=== PATIENT | female | born 1995 | race Caucasian/White ===

== ENCOUNTER 2017-04-06 06:01 | Emergency (ER) | payer OTHER ==
[2017-04-06] MEDS ORDERED: IBUPROFEN 400 MG TABLET (FP) PO ONE ×2 (06:19→06:24)
[2017-04-06] MEDS ORDERED: MAG HYDROX/AL HYDROX/SIMETH 30 ML UNIT-DOSE CUP PO ONE (06:24)
[2017-04-06] MEDS ORDERED: MAG HYDROX/AL HYDROX/SIMETH 30 ML UNIT-DOSE CUP ONE (06:25)
--- NOTE | 2017-04-06 06:26 | PDOC ---
History of Present Illness - General Chief Complaint: Muscle Cramping Stated Complaint: CRAMPS Time Seen by Provider: 04/06/17 06:07 - History of Present Illness Initial Comments: 04/06/17 06:26 21 year old male c/o menstrual cramps since lower abdomen and back pain. denies urinary symptoms. Past History - Past Medical History Allergies/Adverse Reactions: Allergies Allergy/AdvReac Type Severity Reaction Status Date / Time No Known Allergies Allergy Verified 04/06/17 06:17 Home Medications: Ambulatory Orders Ibuprofen 600 mg PO QID PRN #30 tablet 04/06/17 Other medical history: Denies - Immunization History Immunization Up to Date: No - Psycho/Social/Smoking Cessation Hx Anxiety: No Suicidal Ideation: No Smoking History: Never smoked Have you smoked in the past 12 months: No Information on smoking cessation initiated: No Hx Alcohol Use: No Drug/Substance Use Hx: No Substance Use Type: None *Physical Exam - Vital Signs Last Vital Signs Temp Pulse Resp BP Pulse Ox 97.7 F 72 19 112/65 98 04/06/17 06:15 04/06/17 06:15 04/06/17 06:15 04/06/17 06:15 04/06/17 06:15 *DC/Admit/Observation/Transfer Diagnosis at time of Disposition: Menstrual cramps - Discharge Dispostion Disposition: HOME Condition at time of disposition: Fair - Prescriptions Prescriptions: Ibuprofen 600 mg PO QID PRN #30 tablet PRN Reason: Pain - Patient Instructions Printed Discharge Instructions: Painful Menstrual Periods Additional Instructions: take ibuprofen every 6 hours as needed for pain apply heating pad as needed for comfort. follow up with your doctor as soon as possible.
[2017-04-06 06:29] LABS: URINE APPEARANCE CLOUDY; URINE BILIRUBIN NEGATIVE (NEGATIVE); URINE BLOOD 2+ (NEGATIVE); URINE COLOR YELLOW; URINE GLUCOSE (UA) NEGATIVE (NEGATIVE); URINE KETONE NEGATIVE (NEGATIVE); URINE LEUK ESTERASE NEGATIVE (NEGATIVE); URINE NITRITE NEGATIVE (NEGATIVE); URINE UROBILINOGEN NEGATIVE mg/dL (0.2-1.0)
[2017-04-06 06:32] LABS: URINE PROTEIN 1+ (NEGATIVE)
[2017-04-06 06:36] LABS: URINE BACTERIA MANY /hpf (NONE SEEN); URINE MUCUS RARE; URINE RBC 308 /hpf (0-3)
[2017-04-06 06:41] VITALS: BP 112/65; PULSE 72; TEMP 97.7; BMI 25.8
== END 2017-04-06 07:57 | disposition home or self-care (01) ==
LOC: JER 06:01 → SUPCPDRO 06:01 → JER 07:57
DX: N94.6 Dysmenorrhea, unspecified (principal)
CPT/HCPCS: 81003; 81015; 84703; 99282-25